=== PATIENT | female | born 1930 | race Caucasian/White ===

== ENCOUNTER → 2016-12-23 | Outpatient (CLI) | payer OTHER ==
[~2016-12-23] MED LIST: ALBU18002 NAE; ALBUAER INH; ALBUAER9 INH; CALCTAB7 PO; CLC100X PO; CLOP1TAB54 PO; CLTP PO; DILT180C PO; DVN80 PO; FLVHFA44 INH; MULT-190 PO; MULTCAP33 PO; MULTCHW PO; NXM/40 PO; OMEG-128 PO; OMEG10007 PO; PRVC10 PO; SIME1CAP28 PO; TEMA15CA4 PO; ZNTT/150 PO
--- NOTE | 2016-12-23 11:33 | DIAGNOSTIC IMAGING REPORT ---
CERVICAL SPINE 7 VIEWS HISTORY: Peripheral neuropathy NUMBNESS OF RIGHT HAND COMPARISON: None. FINDINGS: The cervical spine is visualized from C1 through the superior endplate of T1. There is no fracture. Slight grade 1. Reversal subluxation of C3 on C4. This appears to be based on degenerative changes of posterior elements. Significant narrowing of the C3-C4 intervertebral disc space with minimal narrowing of all additional levels. No evidence for compression deformity. Calcification left carotid vasculature. IMPRESSION: Moderate degenerative change primarily at C3-C4. No acute abnormality. Calcification left carotid vasculature. Electronically signed by: Lele Kearns M.D. 12/23/2016 11:31 AM Dictated Date/Time: 12/23/2016 11:26 AM
== END | disposition home or self-care (01) ==
LOC: C.RADBC 11:06
PROVIDERS: ATTEND Family Medicine
DX: R20.0 Anesthesia of skin (principal); M50.31 Other cervical disc degeneration, high cervical region

== ENCOUNTER → 2017-01-03 | Outpatient (CLI) | payer OTHER ==
--- NOTE | 2017-01-03 14:31 | DIAGNOSTIC IMAGING REPORT ---
RIGHT HAND MIN 3 VIEWS ROUTINE CLINICAL HISTORY: LUMP ON RIGHT HAND Right nodule. Pain. COMPARISON: None. DISCUSSION: Moderate generalized degenerative change. Mild osteopenia. No well-defined abnormal periosteal reaction. No acute bony abnormality. Several small benign-appearing bone cyst proximal phalanx fifth finger. Moderate degenerative change first metatarsophalangeal joint. There is no evidence for soft tissue swelling. note is made of what appears to be an old healed fracture base of first metacarpal IMPRESSION: Moderate degenerative change. Mild osteopenia. No acute bony abnormality. Electronically signed by: Lele Kearns M.D. 01/03/2017 2:30 PM Dictated Date/Time: 01/03/2017 2:29 PM
== END | disposition home or self-care (01) ==
LOC: C.RADBC 13:46
PROVIDERS: ATTEND Internal Medicine Geriatric Medicine
DX: M79.644 Pain in right finger(s) (principal); R22.31 Localized swelling, mass and lump, right upper limb

== ENCOUNTER 2017-03-04 16:51 | Emergency (ER) | payer OTHER ==
[~2017-03-04] VITALS: Ht 144.8 cm; Wt 58.9 kg
[~2017-03-04 16:51] MED LIST changes: -ALBU18002 NAE; -ALBUAER INH; -CALCTAB7 PO; -CLOP1TAB54 PO; -DILT180C PO; -DVN80 PO; -MULTCAP33 PO; -MULTCHW PO; -NXM/40 PO; -OMEG-128 PO; -PRVC10 PO; -SIME1CAP28 PO; -TEMA15CA4 PO
[2017-03-04 16:55] VITALS: TEMP 36.6; Ht 144.8 cm; Wt 58.9 kg
[2017-03-04] MEDS ORDERED: METOCLOPRAMIDE HCL INJ 5 MG/ML 2 ML VIAL IV STA (18:27)
[2017-03-04] MEDS ORDERED: SODIUM CHLORIDE 0.9% 500ML 500 ML IV STA (18:27)
--- NOTE | 2017-03-04 18:28 | EMERGENCY ROOM VISIT NOTE ---
History Report prepared by Miky: Sandie Kang Under the Supervision of: Dr. Nirmal Purcell M.D. First contact with patient: 18:18 Chief Complaint: CONSTIPATION Stated Complaint: CONSTIPATION, BACK PAIN History of Present Illness The patient is a 86 year old female who presents to the Emergency Room with complaints of constant constipation beginning 4 days prior to arrival. The patient states that she has taken stool softener medication for the past 3 days and has not had a bowel movement. She is passing gas. The patient has a history of bowel obstruction in 2011 that began with constipation. She is also experiencing lower back pain which was present when she had her bowel obstruction. She denies any other symptoms at this time. 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 Review of Systems See HPI for pertinent positives & negatives. A total of 10 systems reviewed and were otherwise negative. Past Medical & Surgical Medical Problems: (1) Acid reflux (2) Arm pain, left (3) Asthma (4) CAD (coronary artery disease) (5) Hypertension (6) Myocardial infarction Surgical Problems: (1) H/O: hysterectomy Family History Patient reports no known family medical history. Social History Smoking Status: Never Smoker Alcohol Use: none Marital Status: Housing Status: lives alone Occupation Status: retired Current/Historical Medications Scheduled Calcium Carbonate-Vitamin D W/ (Caltrate 600 Plus), 1 TAB PO DAILY Clopidogrel Bisulfate (Plavix), 75 MG PO Q2D Diltiazem Hcl Coated Beads (Diltiazem Hcl Er), 180 MG PO DAILY Esomeprazole Magnesium (Nexium), 40 MG PO DAILY Fluticasone Propionate (Flovent Hfa), 2 PUFFS INH DAILY Multiple Vitamins W/ Minerals (Centrum Silver), 1 TAB PO DAILY Ocuvite Preservision (Ocuvite Preservision), 1 TAB PO BID [place]-3 Fatty Acids (Fish Oil [place]-3 1000 mg), 1 CAP PO DAILY Pravastatin Sod (Pravastatin Sodium), 20 MG PO HS Temazepam (Restoril), 15-30 MG PO HS Valsartan (Diovan), 80 MG PO DAILY Scheduled PRN Albuterol Sulfate (Proventil Hfa), 1-2 PUFFS INH DIRECTED PRN for Shortness of Breath Docusate Sodium (Docusate Sodium), 100-200 MG PO DAILY PRN for Constipation Ranitidine (Zantac), 150 MG PO BID PRN for Indigestion Allergies Coded Allergies: Aspirin (Verified Allergy, Unknown, 03/04/17) Physical Exam Vital Signs Date Time Temp Pulse Resp B/P Pulse Ox O2 Delivery O2 Flow Rate FiO2 03/04/17 20:00 65 19 136/68 96 Room Air 03/04/17 18:50 66 03/04/17 18:33 65 18 126/66 96 Room Air 03/04/17 16:55 36.6 48 20 146/73 95 Room Air Physical Exam GENERAL: Patient is a healthy-appearing well-nourished HEAD: Normocephalic atraumatic EYES: Ocular movements intact pupils equal and react to light OROPHARYNX mucous membranes are moist no exudates present no erythema or edema present NECK: Supple no nuchal rigidity CHEST: Good equal expansion LUNGS: Clear and equal to auscultation CARDIAC: Normal S1 and S2 ABDOMEN: Soft nontender no guarding BACK: No CVA tenderness EXTREMITIES: No pain upon palpation normal muscle strength in all groups no clubbing cyanosis or edema NEURO: Patient is following commands is answering questions appropriately. Alert and oriented x3 Cranial Nerves 2-12 grossly intact Medical Decision & Procedures ER Provider Diagnostic Interpretation: CT results as stated below per my review and radiologist interpretation: CT SCAN OF THE ABDOMEN AND PELVIS WITH IV CONTRAST CLINICAL HISTORY: Generalized abdominal pain. COMPARISON STUDY: Abdominal CT dated 04/26/2016. TECHNIQUE: Following the IV administration of 116 cc of Optiray 320, CT scan of the abdomen and pelvis is performed from the lung bases to the proximal femora. Images are reviewed in the axial, sagittal, and coronal planes. IV contrast was administered without complication. Automated dose control exposure was utilized. CT DOSE: 342.87 mGy.cm FINDINGS: Lung bases: The heart is top normal in size and without pericardial effusion. The coronary arteries are calcified. Chronic interstitial changes are present the lung bases. No airspace consolidation or pleural effusion is seen. Liver: The contrast-enhanced liver is normal in size, contour, and attenuation. There is mild central intrahepatic biliary ductal dilatation. The hepatic veins and portal veins are patent. Gallbladder: Surgically absent noting clips in the gallbladder fossa. Spleen: Normal in size and attenuation. Pancreas: Moderately atrophic and grossly unremarkable. Adrenal glands: Unremarkable. Kidneys: The contrast enhanced kidneys demonstrate cortical atrophy and are without hydronephrosis. The kidneys enhance symmetrically. Abdominal vasculature: The abdominal aorta is normal in course and caliber noting advanced atherosclerotic calcification. Stomach and bowel: There is a moderate to large hiatal hernia. Approximately 1/3 of the stomach is located in the thoracic cavity. The duodenum is normal in configuration. No bowel obstruction is identified. There is mild sigmoid diverticulosis without CT evidence of acute diverticulitis. The appendix is not identified and reported surgically absent. Peritoneum: There is no intraperitoneal free air or abdominal ascites. There is a fat-containing umbilical hernia. Lymphadenopathy: None. Pelvic viscera: The bladder is normal as visualized. The uterus is surgically absent. No adnexal lesion is seen. Numerous phleboliths are identified in the pelvis. 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 Skeletal structures: The skeletal structures are osteopenic. There is moderate lumbosacral spondylosis and scoliosis. No lytic or blastic lesions are seen. A large bone island is present in the right femoral head. IMPRESSION: 1. There are no acute infectious or inflammatory findings in the abdomen or pelvis. 2. Moderate to large hiatal hernia. 3. Mild sigmoid diverticulosis without CT evidence of acute diverticulitis. 4. Additional changes as above. Electronically signed by: Manoj Caceres M.D. 03/04/2017 9:56 PM Dictated Date/Time: 03/04/2017 9:51 PM Laboratory Results 03/04/17 18:53 Red Blood Count 4.12, Mean Corpuscular Volume 91.7, Mean Corpuscular Hemoglobin 31.6, Mean Corpuscular Hemoglobin Concent 34.4, Mean Platelet Volume 11.2, Neutrophils (%) (Auto) 47.8, Lymphocytes (%) (Auto) 39.6, Monocytes (%) (Auto) 8.0, Eosinophils (%) (Auto) 3.9, Basophils (%) (Auto) 0.6, Neutrophils # (Auto) 3.23, Lymphocytes # (Auto) 2.67, Monocytes # (Auto) 0.54, Eosinophils # (Auto) 0.26, Basophils # (Auto) 0.04 03/04/17 18:53 Test 03/04/17 18:53 03/04/17 18:55 White Blood Count 6.75 K/uL (4.8-10.8) Red Blood Count 4.12 M/uL (4.2-5.4) Hemoglobin 13.0 g/dL (12.0-16.0) Hematocrit 37.8 % (37-47) Mean Corpuscular Volume 91.7 fL (80-100) Mean Corpuscular Hemoglobin 31.6 pg (25-34) Mean Corpuscular Hemoglobin Concent 34.4 g/dl (32-36) Platelet Count 159 K/uL (130-400) Mean Platelet Volume 11.2 fL (7.4-10.4) Neutrophils (%) (Auto) 47.8 % Lymphocytes (%) (Auto) 39.6 % Monocytes (%) (Auto) 8.0 % Eosinophils (%) (Auto) 3.9 % Basophils (%) (Auto) 0.6 % Neutrophils # (Auto) 3.23 K/uL (1.4-6.5) Lymphocytes # (Auto) 2.67 K/uL (1.2-3.4) Monocytes # (Auto) 0.54 K/uL (0.11-0.59) Eosinophils # (Auto) 0.26 K/uL (0-0.5) Basophils # (Auto) 0.04 K/uL (0-0.2) RDW Standard Deviation 43.7 fL (36.4-46.3) RDW Coefficient of Variation 12.9 % (11.5-14.5) Immature Granulocyte % (Auto) 0.1 % Immature Granulocyte # (Auto) 0.01 K/uL (0.00-0.02) Anion Gap 6.0 mmol/L (3-11) Est Creatinine Clear Calc Drug Dose 37.7 ml/min Estimated GFR () 78.6 Estimated GFR (Non- 67.8 BUN/Creatinine Ratio 18.5 (10-20) Calcium Level 9.3 mg/dl (8.5-10.1) Total Bilirubin 0.5 mg/dl (0.2-1) Direct Bilirubin mg/dl (0-0.2) Aspartate Amino Transf (AST/SGOT) U/L (15-37) Alanine Aminotransferase (ALT/SGPT) 23 U/L (12-78) Alkaline Phosphatase 98 U/L (45-117) Total Protein 7.7 gm/dl (6.4-8.2) Albumin 3.9 gm/dl (3.4-5.0) Lipase 193 U/L (73-393) Urine Color YELLOW Urine Appearance CLEAR (CLEAR) Urine pH 6.5 (4.5-7.5) Urine Specific [place] 1.005 (1.000-1.030) Urine Protein NEG (NEG) Urine Glucose (UA) NEG (NEG) Urine Ketones NEG (NEG) Urine Occult Blood NEG (NEG) Urine Nitrite NEG (NEG) Urine Bilirubin NEG (NEG) Urine Urobilinogen NEG (NEG) Urine Leukocyte Esterase TRACE (NEG) Urine WBC (Auto) 1-5 /hpf (0-5) Urine RBC (Auto) 0-4 /hpf (0-4) Urine Hyaline Casts (Auto) 1-5 /lpf (0-5) Urine Epithelial Cells (Auto) 10-20 /lpf (0-5) Urine Bacteria (Auto) NEG (NEG) Labs reviewed by ED physician. Medications Administered Medications (Trade) Dose Ordered Sig/Sana Route Start Time Stop Time Status Last Admin Dose Admin Sodium Chloride (Nss 500ml) 500 ml @ 999 mls/hr Q31M STAT IV 03/04/17 18:27 03/04/17 18:57 DC 03/04/17 18:42 999 MLS/HR Metoclopramide HCl (Reglan Inj) 10 mg NOW STAT IV 03/04/17 18:27 03/04/17 18:28 DC 03/04/17 18:42 10 MG ED Course 182: Past medical records reviewed. The patient was evaluated in room B9. A complete history and physical examination was performed. 1827: Reglan Inj 10 mg, Sodium Chloride 500 ml @ 999 mls/hr IV. 2218: Upon reexamination the patient is hemodynamically stable. I discussed results and treatment plan with the patient. She verbalizes agreement and understanding. The patient is ready for discharge. Medical Decision The patient is a 86 year old female who presents to the ED with complaints of constipation. Differential diagnosis: Etiologies such as functional constipation, impaction, obstruction, volvulus, metabolic abnormality, infection, neurologic, as well as others were entertained. This is an 86-year-old female who presents emergency department over concerns about constipation. Serial abdominal examinations were performed on the patient in the emergency department and at no time did she exhibit a surgical abdomen. In addition she is also nontender on examination. She has a normal CBC normal renal profile normal liver profile normal lipase. Based on these findings along with a normal CAT scan of the abdomen and pelvis I felt the patient was safe enough to be discharged home. She also has no evidence of constipation on the CAT scan. Based on these findings I felt that the patient could have clear liquid diet for the next 48 hours and to follow-up with her primary care physician. Both patient and family were in agreement with this treatment plan. Impression Primary Impression: Abdominal pressure Scribe Attestation The scribe's documentation has been prepared under my direction and personally reviewed by me in its entirety. I confirm that the note above accurately reflects all work, treatment, procedures, and medical decision making performed by me. Departure Information Dispostion Home / Self-Care Referrals Jamaal Heaton D.O.Int.Med. (PCP) Forms HOME CARE DOCUMENTATION FORM, IMPORTANT VISIT INFORMATION, School Instructions, Work Instructions Patient Instructions ED Abd Pain Unkn Cause Fem, ED Diet Clear Liquid, My [facility] Additional Instructions Clear liquid diet next 48 hours You have been examined and treated today on an emergency basis only. This is not a substitute for, or an effort to provide, complete comprehensive medical care. It is impossible to recognize and treat all injuries or illnesses in a single emergency department visit. It is therefore important that you follow up closely with Dr Heaton. Call as soon as possible for an appointment. Thank you for your time and consideration. I look forward to speaking with you again soon. Please don't hesitate to call us if you have any questions.
[2017-03-04 19:05] LABS: BASO % 0.6 %; BASO ABS # 0.04 K/uL (0-0.2); COMPLETE YES; EOS % 3.9 %; HEMATOCRIT 37.8 % (37-47); IG% 0.1 %; LYMPH % 39.6 %; LYMPH ABS # 2.67 K/uL (1.2-3.4); MEAN CELL VOLUME 91.7 fL (80-100); MEAN CORPUSCULAR HEMOGLOBIN 31.6 pg (25-34); MEAN CORPUSCULAR HGB CONC 34.4 g/dl (32-36); MEAN PLATELET VOLUME 11.2 fL (7.4-10.4); NEUT % 47.8 %; PLATELET COUNT 159 K/uL (130-400); RED BLOOD COUNT 4.12 M/uL (4.2-5.4); WHITE BLOOD COUNT 6.75 K/uL (4.8-10.8)
[2017-03-04 19:07] LABS: REVIEW REQ? NO; URINE APPEARANCE CLEAR (CLEAR); URINE BILIRUBIN NEG (NEG); URINE COLOR YELLOW; URINE NITRITE NEG (NEG); URINE PH 6.5 (4.5-7.5); URINE SPECIFIC GRAVITY 1.005 (1.000-1.030); UROBILINOGEN NEG (NEG)
[2017-03-04 19:08] LABS: MANUAL MICROSCOPIC REQUIRED? NO
[2017-03-04 19:30] LABS: ALKALINE PHOSPHATASE 98 U/L (45-117); ALT/SGPT 23 U/L (12-78); BLOOD UREA NITROGEN 15 mg/dl (7-18); BUN/CREATININE RATIO 18.5 (10-20); CALCIUM 9.3 mg/dl (8.5-10.1); CARBON DIOXIDE 31 mmol/L (21-32); CHLORIDE 106 mmol/L (98-107); CREATININE 0.79 mg/dl (0.60-1.20); GLUCOSE 88 mg/dl (70-99); SODIUM 143 mmol/L (136-145)
[2017-03-04] MEDS ORDERED: ALBUAER INH (19:38)
[2017-03-04] MEDS ORDERED: OMEG-128 PO (19:38)
[2017-03-04] MEDS ORDERED: OPTIRAY 320 IV PRN (21:45)
--- NOTE | 2017-03-04 21:58 | DIAGNOSTIC IMAGING REPORT ---
CT SCAN OF THE ABDOMEN AND PELVIS WITH IV CONTRAST CLINICAL HISTORY: Generalized abdominal pain. COMPARISON STUDY: Abdominal CT dated 04/26/2016. TECHNIQUE: Following the IV administration of 116 cc of Optiray 320, CT scan of the abdomen and pelvis is performed from the lung bases to the proximal femora. Images are reviewed in the axial, sagittal, and coronal planes. IV contrast was administered without complication. Automated dose control exposure was utilized. CT DOSE: 342.87 mGy.cm FINDINGS: Lung bases: The heart is top normal in size and without pericardial effusion. The coronary arteries are calcified. Chronic interstitial changes are present the lung bases. No airspace consolidation or pleural effusion is seen. Liver: The contrast-enhanced liver is normal in size, contour, and attenuation. There is mild central intrahepatic biliary ductal dilatation. The hepatic veins and portal veins are patent. Gallbladder: Surgically absent noting clips in the gallbladder fossa. Spleen: Normal in size and attenuation. Pancreas: Moderately atrophic and grossly unremarkable. Adrenal glands: Unremarkable. Kidneys: The contrast enhanced kidneys demonstrate cortical atrophy and are without hydronephrosis. The kidneys enhance symmetrically. Abdominal vasculature: The abdominal aorta is normal in course and caliber noting advanced atherosclerotic calcification. Stomach and bowel: There is a moderate to large hiatal hernia. Approximately 1/3 of the stomach is located in the thoracic cavity. The duodenum is normal in configuration. No bowel obstruction is identified. There is mild sigmoid diverticulosis without CT evidence of acute diverticulitis. The appendix is not identified and reported surgically absent. Peritoneum: There is no intraperitoneal free air or abdominal ascites. There is a fat-containing umbilical hernia. Lymphadenopathy: None. Pelvic viscera: The bladder is normal as visualized. The uterus is surgically absent. No adnexal lesion is seen. Numerous phleboliths are identified in the pelvis. 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 Skeletal structures: The skeletal structures are osteopenic. There is moderate lumbosacral spondylosis and scoliosis. No lytic or blastic lesions are seen. A large bone island is present in the right femoral head. IMPRESSION: 1. There are no acute infectious or inflammatory findings in the abdomen or pelvis. 2. Moderate to large hiatal hernia. 3. Mild sigmoid diverticulosis without CT evidence of acute diverticulitis. 4. Additional changes as above. Electronically signed by: Manoj Caceres M.D. 03/04/2017 9:56 PM Dictated Date/Time: 03/04/2017 9:51 PM
[2017-03-04 23:18] VITALS: BP 139/74; PULSE 65; O2SAT 93
[2017-08-29] MEDS ORDERED: CLOP1TAB54 PO (01:29)
[2017-08-29] MEDS ORDERED: DVN80 PO (01:30)
[2017-08-29] MEDS ORDERED: NXM/40 PO (01:49)
[2017-08-29] MEDS ORDERED: TEMA15CA4 PO (11:06)
[2017-08-29] MEDS ORDERED: SIME1CAP28 PO (11:35)
[2017-08-29] MEDS ORDERED: MULTCAP33 PO (11:35)
[2017-08-29] MEDS ORDERED: OMEG10007 PO (11:35)
[2017-08-29] MEDS ORDERED: ALBU18002 NAE (11:35)
== END 2017-03-04 23:18 | disposition home or self-care (01) ==
LOC: C.EDB 16:52
DX: R10.9 Unspecified abdominal pain (principal); K21.9 Gastro-esophageal reflux disease without esophagitis; I25.10 Atherosclerotic heart disease of native coronary artery without angina pectoris; I10 Essential (primary) hypertension; I25.2 Old myocardial infarction; J45.909 Unspecified asthma, uncomplicated; Z79.02 Long term (current) use of antithrombotics/antiplatelets; Z79.899 Other long term (current) drug therapy

== ENCOUNTER → 2017-03-08 | Outpatient (CLI) | payer OTHER ==
[~2017-03-08] MED LIST changes: +ALBU18002 NAE; +ALBUAER INH; -ALBUAER9 INH; +CALCTAB7 PO; +CLOP1TAB54 PO; -CLTP PO; +DILT180C PO; +DVN80 PO; +LACT10SO17 PO; +MULTCAP33 PO; +MULTCHW PO; +NXM/40 PO; +OMEG-128 PO; +PRVC10 PO; +SIME1CAP28 PO; +TEMA15CA4 PO
--- NOTE | 2017-03-08 16:29 | MAMMOGRAPHY REPORT ---
BILATERAL DIGITAL SCREENING MAMMOGRAM WITH CAD: 03/08/2017 CLINICAL HISTORY: Routine screening. Patient has no complaints. TECHNIQUE: Bilateral CC and MLO views were obtained. Current study was also evaluated with a Comput er Aided Detection (CAD) system. COMPARISON: Comparison is made to exams dated: 03/03/2016 mammogram, 07/28/2011 mammogram, 06/23/2010 ma mmogram, 09/17/2009 mammogram - [facility], 03/17/2009, and 09/17/2008. BREAST COMPOSITION: There are scattered areas of fibroglandular density in both breasts. FINDINGS: There are scattered groupings of benign-appearing microcalcifications bilaterally. No ne w suspicious mass, architectural distortion or cluster of microcalcifications is seen. IMPRESSION: ACR BI-RADS CATEGORY 1: NEGATIVE There is no mammographic evidence of malignancy. A 1 year screening mammogram is recommended. The p atient will receive written notification of the results. Approximately 10% of breast cancers are not detected with mammography. A negative mammographic repor t should not delay biopsy if a clinically suggestive mass is present. Ernestina Bergman M.D. ay/:03/08/2017 15:09:59 Water Filterer: Emmy BLACK)(Steven), [facility] letter sent: Normal 1/2 BI-RADS Code: ACR BI-RADS Category 1: Negative
== END | disposition home or self-care (01) ==
LOC: C.MAMM 10:55
PROVIDERS: ATTEND Obstetrics & Gynecology
DX: Z12.31 Encounter for screening mammogram for malignant neoplasm of breast (principal)

== ENCOUNTER → 2017-03-21 | Outpatient (CLI) | payer OTHER | END | disposition home or self-care (01) | LOC: C.LABBC 15:36 | PROVIDERS: ATTEND Physician Assistant | DX: R14.0 Abdominal distension (gaseous) (principal); Z86.19 Personal history of other infectious and parasitic diseases ==

== ENCOUNTER → 2017-04-13 | Day surgery (SDC) | payer OTHER ==
[2017-04-07 11:39] VITALS: BMI 27.0
[~2017-04-13] VITALS: Ht 142.2 cm; Wt 57.3 kg
[~2017-04-13] MED LIST changes: -ALBUAER INH; +LIDOCAINE HCL 2% 2 ML VIAL (20MG/ML) ONE; -MULT-190 PO; -OMEG-128 PO; +PROPOFOL IV EMULSION 10 MG/ML 20 ML VIAL IV ONE; +SODIUM CHLORIDE 0.9% 500ML 500 ML IV ONE; -ZNTT/150 PO
[2017-04-13 13:47] VITALS: Ht 142.2 cm; Wt 57.3 kg
--- NOTE | 2017-04-13 14:31 | Endo History and Physical ---
History & Physical Date of Service: April 13, 2017. Chief Complaint: PAIN BLOATING LUQ PAIN HERNIA Referring Physician: DR. BOYCE History of Present Illness 86 yo CF who presents for EGD secondary to LUQ abdominal pain and bloating. Past Surgical History Hx Cardiac Surgery: Yes (HEART CATH, STENT X1) Hx Internal Defibrillator: No Hx Pacemaker: No Hx Abdominal Surgery: Yes (PARTIAL HYSTER, BILATERAL OOPHORECTOMY, ELIE) Hx of Implantable Prosthesis: No Hx Post-Op Nausea and Vomiting: No Hx Cancer Surgery: No Hx Thoracic Surgery: No Hx Orthopedic: No Hx Urinary Tract Surgery: No Family History Esophogeal [place] Social History Smoking Status: Never Smoker Hx Substance Use: No Hx Alcohol Use: No Allergies Coded Allergies: Aspirin (Verified Allergy, Severe, DIFFICULTY BREATHING, 04/13/17) Uncoded Allergies: MOLD (Allergy, Mild, UNKNOWN, 04/13/17) Current Medications Reported Home Medications Medications Dose Route/Sig Max Daily Dose Days Date Category Simethicone 125 Mg Cap 1 Tab PO UD 04/07/17 Reported Proair Respiclick (Albuterol Sulfate) 108 Mcg/Act Aer 2 [place] LEX Q4H PRN 04/07/17 Reported Preservision Areds (Multiple Vitamins W/ Minerals) 1 Cap Cap 1 Cap PO BID 04/07/17 Reported [place]-3 (Fish Oil) 1 Ea Cap 1 Cap PO QAM 04/07/17 Reported Docusate Sodium 100 Mg Cap 100-200 Mg PO DAILY PRN 03/04/17 Reported Caltrate 600 Plus (Calcium Carbonate-Vitamin D W/) 1 Tab Tab 1 Tab PO QAM 03/04/17 Reported Flovent Hfa (Fluticasone Propionate) 120 Puffs/5280 Mcg Aero 2 Puffs INH QAM 03/04/17 Reported Centrum Silver (Multiple Vitamins W/ Minerals) 1 Chw Chw 1 Tab PO QAM 10/09/16 Reported Pravastatin Sodium (Pravastatin Sod) 10 Mg Tab 20 Mg PO HS 10/09/16 Reported Diltiazem Hcl Er (Diltiazem Hcl Coated Beads) 180 Mg Cap 180 Mg PO QAM 10/09/16 Reported Diovan (Valsartan) 80 Mg Tab 80 Mg PO QAM 07/17/12 Reported Plavix (Clopidogrel Bisulfate) 75 Mg Tab 75 Mg PO Q2D 07/17/12 Reported Nexium (Esomeprazole Magnesium) 40 Mg Capcr 40 Mg PO QAM 03/26/10 Reported Restoril (Temazepam) 15 Mg Cap 15 Mg PO HS 02/06/07 Reported Vital Signs Weight (Kilograms): 57.27 Height (Feet): 4 Height (Inches): 8 Date Time Temp Pulse Resp B/P Pulse Ox O2 Delivery O2 Flow Rate FiO2 04/13/17 14:05 36.8 82 18 137/56 97 Room Air Physical Exam General Appearance: WD/WN, no apparent distress Respiratory/Chest: Auscultation: breath sounds normal Cardiovascular: Heart Auscultation: RRR Abdomen: Bowel Sounds: normal Inspection & Palpation: soft, non-distended, no tenderness, guarding & rebound Assessment and Plan Assessment: 86 yo CF who presents for EGD secondary to LUQ abdominal pain and bloating. Plan: Proceed with EGD.
--- NOTE | 2017-04-13 15:22 | Discharge Instructions ---
Endoscopy Patient Instructions Date / Procedure(s) Performed April 13, 2017. EGD Allergy Information Coded Allergies: Aspirin (Verified Allergy, Severe, DIFFICULTY BREATHING, 04/13/17) Uncoded Allergies: MOLD (Allergy, Mild, UNKNOWN, 04/13/17) Discharge Date / Findings April 13, 2017. Gastritis s/p biopsies Hiatal hernia Schatzki's ring dilated to 20mm Medication Instructions Stopped Medication(s): ALL EXCEPT DIOVAN CARDIZEM AND NEXIUM STOPPED PLAVIX 04-10-17 OK to resume all medications today as prescribed Reported Home Medications Medications Dose Route/Sig Max Daily Dose Days Date Category Simethicone 125 Mg Cap 1 Tab PO UD 04/07/17 Reported Proair Respiclick (Albuterol Sulfate) 108 Mcg/Act Aer 2 Pimento LEX Q4H PRN 04/07/17 Reported Preservision Areds (Multiple Vitamins W/ Minerals) 1 Cap Cap 1 Cap PO BID 04/07/17 Reported Morrill-3 (Fish Oil) 1 Ea Cap 1 Cap PO QAM 04/07/17 Reported Docusate Sodium 100 Mg Cap 100-200 Mg PO DAILY PRN 03/04/17 Reported Caltrate 600 Plus (Calcium Carbonate-Vitamin D W/) 1 Tab Tab 1 Tab PO QAM 03/04/17 Reported Flovent Hfa (Fluticasone Propionate) 120 Puffs/5280 Mcg Aero 2 Puffs INH QAM 03/04/17 Reported Centrum Silver (Multiple Vitamins W/ Minerals) 1 Chw Chw 1 Tab PO QAM 10/09/16 Reported Pravastatin Sodium (Pravastatin Sod) 10 Mg Tab 20 Mg PO HS 10/09/16 Reported Diltiazem Hcl Er (Diltiazem Hcl Coated Beads) 180 Mg Cap 180 Mg PO QAM 10/09/16 Reported Diovan (Valsartan) 80 Mg Tab 80 Mg PO QAM 07/17/12 Reported Plavix (Clopidogrel Bisulfate) 75 Mg Tab 75 Mg PO Q2D 07/17/12 Reported Nexium (Esomeprazole Magnesium) 40 Mg Capcr 40 Mg PO QAM 03/26/10 Reported Restoril (Temazepam) 15 Mg Cap 15 Mg PO HS 02/06/07 Reported Provider Instructions Activity Restrictions - No exercising or heavy lifting for 24 hours. - Do not drink alcohol the day of the procedure. - Do not drive a car or operate machinery until the day after the procedure. - Do not make any important decisions or sign important papers in 24 hours after the procedure. Following Day: - Return to full activity which may include returning to work/school. Diet Start your diet with liquids and light foods (jello, soup, juice, toast). Then eat your usual diet if not nauseated. Treatment For Common After Affects For mild abdominal pain, bloating, or excessive gas: - Rest - Eat lightly - Lie on right side Follow-Up Information Follow-up with DR. BOYCE as scheduled Anesthesia Information What You Should Know You have had a procedure that required some medicine to reduce anxiety and discomfort. This treatment is called moderate sedation. After receiving the treatment, you may be sleepy, but you will be able to breathe on your own. The effects of the treatment may last for several hours. Follow these instructions along with Activity/Diet recommendations noted above: * Do NOT do anything where dizziness or clumsiness would be dangerous. * Rest quietly at home today, then you can be up and about tomorrow. * Have a responsible person stay with you the rest of today. * You may have had an I.V. today. If so, you may take the dressing off later today. Recommendations Call your doctor if: * Trouble breathing * Continuous vomiting for more than 24 hours * Temperature above 101 degrees * Severe abdominal pain or bloating * Pain not relieved by pain medicine ordered * There is increased drainage or redness from any incision * A large amount of rectal bleeding greater than 2-3 tablespoons. (If you had a polyp/s removed or have hemorrhoids, a small amount of blood - from the rectum is to be expected.) * You have any unanswered questions or concerns. IN THE EVENT OF A SERIOUS EMERGENCY, GO TO THE NEAREST EMERGENCY ROOM Your discharge instructions were prepared by provider Butch Moon. Patient Instructions Signature Page Karla Britt Patient (or Guardian) Signature/Date: I have read and understand the instructions given to me by my caregivers. Caregiver/RN/Doctor Signature/Date: The above-named patient and/or guardian has received patient instructions on this date. + Original Patient Signature Page (only) stays with chart. Please make copy for patient.
--- NOTE | 2017-04-13 15:33 | GI REPORT ---
Procedure Date: 04/13/2017 2:37 PM THIS REPORT HAS BEEN AMENDED Addendum Number: 1 Addendum Date: 04/13/2017 4:47:37 PM Dilation of Schatzki's Ring was performed with TTS balloon dilation from 15 to 20 mm sequentially. The site was examined post dilation, and she had minimal improvement at the dilation site. Procedure: Upper GI endoscopy Indications: Abdominal pain in the left upper quadrant, Abdominal bloating Medicines: Monitored Anesthesia Care Complications: No immediate complications. Estimated Blood Loss: Estimated blood loss: none. Procedure: Pre-Anesthesia Assessment: - Prior to the procedure, a History and Physical was performed, and patient medications and allergies were reviewed. The patient's tolerance of previous anesthesia was also reviewed. The risks and benefits of the procedure and the sedation options and risks were discussed with the patient. All questions were answered, and informed consent was obtained. Prior Anticoagulants: The patient has taken Plavix (clopidogrel), last dose was 5 days prior to procedure. ASA Grade Assessment: III - A patient with severe systemic disease. After reviewing the risks and benefits, the patient was deemed in satisfactory condition to undergo the procedure. After obtaining informed consent, the endoscope was passed under direct vision. Throughout the procedure, the patient's blood pressure, pulse, and oxygen saturations were monitored continuously. The scope was introduced through the mouth, and advanced to the second part of duodenum. The upper GI endoscopy was accomplished without difficulty. The patient tolerated the procedure well. Findings: A mild Schatzki ring (acquired) was found at the gastroesophageal junction. The dilation site was examined and showed mild improvement in luminal narrowing. A small hiatus hernia was present. Localized mild inflammation characterized by erythema was found in the gastric antrum. Biopsies were taken with a cold forceps for histology. The examined duodenum was normal. Impression: - Mild Schatzki ring. - Small hiatus hernia. - Gastritis. Biopsied. - Normal examined duodenum. Recommendation: - Resume previous diet. - Continue present medications. - Await pathology results. - Return to primary care physician as previously scheduled. Butch ThiagoRandy Red 04/13/2017 3:32:58 PM This report has been signed electronically. Note Initiated On: 04/13/2017 2:37 PM I attest to the content of the Intraoperative Record and orders documented therein, exceptions below Butch Knapp Red, 04/13/2017 4:48:34 PM This report has been signed electronically.
[2017-04-13 15:55] VITALS: BP 124/49; PULSE 69; O2SAT 95
--- NOTE | 2017-04-13 16:01 | Anesthesiology Progress Note ---
Anesthesia Post Op Note Date & Time April 13, 2017 at 16:01 Vital Signs Pain Intensity: 3 Vital Signs Past 12 Hours Date Time Temp Pulse Resp B/P Pulse Ox O2 Delivery O2 Flow Rate FiO2 04/13/17 15:55 69 18 124/49 95 Room Air 04/13/17 15:40 71 18 121/54 97 Room Air 04/13/17 15:26 36.6 75 18 128/46 95 Room Air 04/13/17 14:05 36.8 82 18 137/56 97 Room Air Notes Mental Status: alert / awake / arousable, participated in evaluation Pt Amnestic to Procedure: Yes Nausea / Vomiting: adequately controlled Pain: adequately controlled Airway Patency, RR, SpO2: stable & adequate BP & HR: stable & adequate Hydration State: stable & adequate Anesthetic Complications: no major complications apparent
== END | disposition home or self-care (01) ==
LOC: C.GI 13:29
PROVIDERS: ATTEND Internal Medicine
DX: R10.12 Left upper quadrant pain (principal); R14.0 Abdominal distension (gaseous); K22.2 Esophageal obstruction; K44.9 Diaphragmatic hernia without obstruction or gangrene; K29.70 Gastritis, unspecified, without bleeding; J45.909 Unspecified asthma, uncomplicated; I25.2 Old myocardial infarction; I10 Essential (primary) hypertension; Z79.02 Long term (current) use of antithrombotics/antiplatelets; Z79.899 Other long term (current) drug therapy; Z90.722 Acquired absence of ovaries, bilateral; Z90.710 Acquired absence of both cervix and uterus; Z90.49 Acquired absence of other specified parts of digestive tract; Z80.0 Family history of malignant neoplasm of digestive organs; Z68.27 Body mass index [BMI] 27.0-27.9, adult

== ENCOUNTER → 2017-04-20 | Outpatient (CLI) | payer OTHER ==
[~2017-04-20] MED LIST changes: -LIDOCAINE HCL 2% 2 ML VIAL (20MG/ML) ONE; -PROPOFOL IV EMULSION 10 MG/ML 20 ML VIAL IV ONE; -SODIUM CHLORIDE 0.9% 500ML 500 ML IV ONE
--- NOTE | 2017-04-20 13:44 | DIAGNOSTIC IMAGING REPORT ---
KUB CLINICAL HISTORY: Abdominal bloating. Left upper quadrant abdominal pain. COMPARISON STUDY: CT of the abdomen and pelvis March 04, 2017. FINDINGS: There are cholecystectomy clips. Pelvic calcifications reflect phleboliths. The bowel gas pattern is normal. There is a [id number] amount of stool within the colon and rectum. A suspected bone island within the right femoral neck is noted. IMPRESSION: 1. No evidence for a bowel obstruction. 2. Mild to moderate amount of stool within the colon and rectum. Electronically signed by: Donnie Gurrola M.D. 04/20/2017 1:43 PM Dictated Date/Time: 04/20/2017 1:42 PM
== END | disposition home or self-care (01) ==
LOC: C.RAD1850 13:30
PROVIDERS: ATTEND Registered Nurse
DX: R14.0 Abdominal distension (gaseous) (principal); R10.12 Left upper quadrant pain

== ENCOUNTER → 2017-06-27 | Outpatient (CLI) | payer OTHER ==
--- NOTE | 2017-06-27 13:25 | DIAGNOSTIC IMAGING REPORT ---
KUB CLINICAL HISTORY: Abdominal bloating. Left upper quadrant pain. COMPARISON STUDY: CT of the abdomen and pelvis March 04, 2017 and KUB April 20, 2017. FINDINGS: Note is made of cholecystectomy clips and phleboliths within the pelvis. The bowel gas pattern is normal. There is mild levoscoliosis of the lumbar spine. Pelvic floor relaxation may be present but is suboptimally assessed by radiography. There is a moderate amount of stool within the colon and rectum. IMPRESSION: 1. No evidence of bowel obstruction. 2. Moderate amount of stool within the colon and rectum. Electronically signed by: Donnie Gurrola M.D. 06/27/2017 1:23 PM Dictated Date/Time: 06/27/2017 1:22 PM
--- NOTE | 2017-06-27 13:42 | DIAGNOSTIC IMAGING REPORT ---
CHEST 2 VIEWS ROUTINE CLINICAL HISTORY: Persistent dry cough COMPARISON STUDY: 10/09/2016 FINDINGS: The cardiac and mediastinal contours are normal. There is no evidence of focal pulmonary consolidation. There is no evidence of failure. There is stable blunting of the left lateral costophrenic angle. IMPRESSION: No active disease in the chest. Electronically signed by: Loco Rose M.D. 06/27/2017 1:41 PM Dictated Date/Time: 06/27/2017 1:40 PM
== END | disposition home or self-care (01) ==
LOC: C.RADBC 12:55
PROVIDERS: ATTEND Physician Assistant
DX: R05 Cough (principal); R14.0 Abdominal distension (gaseous); R10.12 Left upper quadrant pain

== ENCOUNTER 2017-08-29 11:49 | Emergency (ER) | payer OTHER ==
[~2017-08-29] VITALS: Ht 147.3 cm; Wt 56.9 kg
[~2017-08-29 11:49] MED LIST changes: -CALCTAB7 PO; -CLC100X PO; -DILT180C PO; -FLVHFA44 INH; -LACT10SO17 PO; -MULTCHW PO; -PRVC10 PO
[2017-08-29 12:02] VITALS: TEMP 36.9; Ht 147.3 cm; Wt 56.9 kg
--- NOTE | 2017-08-29 12:38 | EMERGENCY ROOM VISIT NOTE ---
History First contact with patient: 12:15 Chief Complaint: GI ASSESSMENT Stated Complaint: BOWEL PROBLEMS Nursing Triage Summary: pt reports she has not had bm for 4 days has tried laxatives no results has hx of bowel obstruction in past History of Present Illness The patient is a 86 year old female who presents to the Emergency Room with complaints of "bowel problems". The patient states that she has a history of small bowel obstruction, most recently 2011. She states that since this past Tuesday or Tuesday she has not had a bowel movement. This past Tuesday she had to dococet no bowel movement therefore on Tuesday took another 2. She then states that Tuesday and Tuesday she took polyethylene glycol 3350. No bowel movement. She states that yesterday she had a small liquid-like bowel movement, and flatulence but no solid bowel movement. She notes she's been consuming T and Jell-O and questions whether or not she has been eating enough food to cause a bowel movement. She states that she called her family doctor today and informed him upon her symptoms and they became concerned referring her here for her history of bowel obstruction. She notes that she feels slightly bloated, and has lower abdominal cramping rated as a 5/10. She denies any fevers or chills. Review of Systems A complete 10-point Review of Systems was discussed with the patient, with pertinent positives and negatives listed in the History of Present Illness. All remaining Review of Systems questions can be considered negative unless otherwise specified. Past Medical/Surgical History Medical Problems: (1) Acid reflux (2) Arm pain, left (3) Asthma (4) CAD (coronary artery disease) (5) Hypertension (6) Myocardial infarction Surgical Problems: (1) H/O: hysterectomy Family History Patient reports no known family medical history. Social History Smoking Status: Never Smoker Alcohol Use: none Marital Status: Housing Status: lives alone Occupation Status: retired Current/Historical Medications Scheduled Calcium Carbonate-Vitamin D W/ (Caltrate 600 Plus), 1 TAB PO QAM Clopidogrel Bisulfate (Plavix), 75 MG PO Q2D Diltiazem Hcl Coated Beads (Diltiazem Hcl Er), 180 MG PO QAM Esomeprazole Magnesium (Nexium), 40 MG PO QAM Fish Oil (Harrah-3), 1 CAP PO QAM Fluticasone Propionate (Flovent Hfa), 2 PUFFS INH QAM Lactulose (Chronulac), 15 ML PO DAILY Multiple Vitamins W/ Minerals (Centrum Silver), 1 TAB PO QAM Multiple Vitamins W/ Minerals (Preservision Areds), 1 CAP PO BID Pravastatin Sod (Pravastatin Sodium), 20 MG PO HS Simethicone (Simethicone), 1 TAB PO UD Temazepam (Restoril), 15 MG PO HS Valsartan (Diovan), 80 MG PO QAM Scheduled PRN Albuterol Sulfate (Proair Respiclick), 2 SPRAY LEX Q4H PRN for SOB/Wheezing Docusate Sodium (Docusate Sodium), 100-200 MG PO DAILY PRN for Constipation Physical Exam Vital Signs Date Time Temp Pulse Resp B/P (MAP) Pulse Ox O2 Delivery O2 Flow Rate FiO2 08/29/17 16:55 74 18 162/94 97 Room Air 08/29/17 15:00 60 16 144/65 97 Room Air 08/29/17 13:11 75 18 141/53 98 Room Air 08/29/17 12:02 36.9 80 18 166/71 99 Room Air Physical Exam VITAL SIGNS - Vital signs and nursing notes were reviewed. Stable. GENERAL -86-year-old female appearing her stated age who is in no acute distress. Communicates well with provider and answers questions appropriately. SKIN - Without rashes. HEAD - NC/AT. EYES - Sclera anicteric. EARS - No deformities of external structures noted on gross examination bilaterally. NOSE - Midline and without cyanosis. No epistaxis or purulent drainage noted. MOUTH/OROPHARYNX - Without perioral cyanosis. LUNGS - Chest wall symmetric without accessory muscle use, intercostals retractions, or central cyanosis. Normal vesicular breath sounds CTA B/L. No wheezes, rales, or rhonchi appreciated. CARDIAC - RRR with S1/S2. No murmur, rubs, or gallops appreciated. ABDOMEN - Abdominal contour normal without pulsations or visible masses. BS hyperactive all four quadrants. No tenderness, palpable masses, hepatosplenomegaly, or ascites noted. EXTREMITIES - No clubbing or peripheral cyanosis. No pretibial edema present. +5 /5 strength noted in UE/LE bilaterally. Medical Decision & Procedures ER Provider Diagnostic Interpretation: ABD/PELVIS IV AND ORAL CONT CLINICAL HISTORY: 86 years-old Female presenting with No bowel movement in 6 days, bloating, hx obstruction. TECHNIQUE: Multidetector CT of the abdomen and pelvis was performed after the administration of oral and intravenous contrast. IV contrast: 93 mL of Optiray 320. A dose lowering technique was used consistent with the principles of ALARA (as low as reasonably achievable). COMPARISON: 03/04/2017. CT DOSE (mGy.cm): The estimated cumulative dose is 323.78 mGy.cm. FINDINGS: Lock Expert topogram: Unremarkable. Lung bases: Minimal dependent changes likely atelectasis. Solid 4 mm fissural nodule in the right middle lobe. Left atrial enlargement. Aortic valve and coronary artery calcification. No pericardial or pleural effusion. Liver: Normal morphology. No liver lesion. Patent hepatic vasculature. Biliary: Prominence of intrahepatic and extrahepatic bile ducts likely a reservoir effect in the post cholecystectomy state. Gallbladder surgically absent. Pancreas: Normal. Spleen: Normal. Adrenal glands: Normal. Kidneys and ureters: Normal. No hydronephrosis. Bladder: Normal. Pelvic organs: Uterus surgically absent. Bowel: Mild stool burden in the left colon and sigmoid. No bowel obstruction. Moderate sliding hiatal hernia. Peritoneal cavity: No free fluid or intraperitoneal gas. Lymph nodes: No enlarged lymph nodes in the abdomen or pelvis. Vasculature: Atherosclerosis of the normal caliber abdominal aorta. IVC patent. Abdominal wall: Fat containing midline ventral hernia. Musculoskeletal: Degenerative changes of the spine. IMPRESSION: 1. Mild stool burden in the left colon. No bowel obstruction. No acute intra-abdominal pathology. 2. Moderate hiatal hernia. 3. Solid 4 mm fissural right middle lobe nodule. Follow-up per Deangelo Society 2017 recommendations below. Please refer to below summary of Fleischner Society 2017 recommendations for follow-up of incidental CT nodules (H Denver et al. Guidelines for management of incidental pulmonary nodules detected on CT images: From the Fleischner Society 2017. Radiology 2017; 284: 228-243.) SOLID NODULES Single nodule; size < 6 mm * Low risk patients: No routine follow-up * High risk patients: Optional CT at 12 months Single nodule; size 6-8 mm * Low risk patients: CT at 6-12 months, then consider CT at 18-24 months * High risk patients: CT at 6-12 months, then at 18-24 months Single nodule; size > 8 mm * Either low or high risk patients: Considered CT at 3 months, PET/CT, or tissue sampling Multiple nodules; size < 6 mm * Low risk patients: No routine follow up * High risk patients: Optional CT at 12 months Multiple nodules; size 6-8 mm * Low risk patients: CT at 3-6 months, then consider CT at 18-24 months * High risk patients: CT at 3-6 months, then at 18-24 months Multiple nodules; size > 8 mm * Low risk patients: CT at 3-6 months, then consider at 18-24 months * High risk patients: CT at 3-6 months, then at 18-24 months Note: These guidelines apply to incidental nodules. These guidelines do not apply to patients younger than 35 years, immunocompromised patients, or patients with cancer. * Low risk patients: Minimal or absent history of smoking and/or other known risk factors * High risk patients: History of smoking, exposure to other carcinogens, emphysema, fibrosis, upper lobe location, family history of lung cancer, etc. * If a nodule up to 8 mm is partly solid or is ground glass, further follow-up is required after 24 months to exclude possible slow growing adenocarcinoma. SUBSOLID NODULES Single ground-glass nodule * Nodule size < 6 mm: No routine follow-up * Nodule size > or = 6 mm: CT at 6-12 months to confirm persistence, then CT every 2 years until 5 years Single part-solid nodule * Nodule size < 6 mm: No routine follow-up * Nodules size > or = 6 mm: CT at 3-6 months to confirm persistence. If unchanged and solid component remains < 6 mm, annual CT should be performed for 5 years Multiple nodules * Nodule size < 6 mm: CT at 3-6 months. If stable, consider CT at 2 and 4 years. * Nodules size > or = 6 mm: CT at 3-6 months. Subsequent management based on the most suspicious nodule(s) Electronically signed by: Max Merino M.D. 08/29/2017 4:33 PM Dictated Date/Time: 08/29/2017 4:28 PM PA CHEST RADIOGRAPH AND UPRIGHT AND SUPINE AP RADIOGRAPHS OF THE ABDOMEN CLINICAL HISTORY: No bowel movement in 6 days, bloating, history of obstruction. COMPARISON STUDY: Chest radiograph June 27, 2017 CT of the abdomen and pelvis February 22, 2017. FINDINGS: Lung volumes are normal. No pneumothorax or pleural effusion is present. There is no evidence of pulmonary edema. Blunting of the left costophrenic angle is chronic. Cardiomediastinal silhouette is stable. No consolidation to suggest pneumonia. There is no free air. Cholecystectomy clips are present. Oral contrast is noted within portions of the small bowel. There is a moderate amount of stool within colon and rectum. IMPRESSION: 1. No free air or evidence of bowel obstruction. 2. No acute cardiopulmonary findings. 3. Moderate amount of stool within the colon and rectum. Electronically signed by: Donnie Gurrola M.D. 08/29/2017 1:43 PM Dictated Date/Time: 08/29/2017 1:41 PM Laboratory Results 08/29/17 12:35 Red Blood Count 4.31, Mean Corpuscular Volume 92.1, Mean Corpuscular Hemoglobin 30.9, Mean Corpuscular Hemoglobin Concent 33.5, Mean Platelet Volume 10.7, Neutrophils (%) (Auto) 63.5, Lymphocytes (%) (Auto) 26.3, Monocytes (%) (Auto) 7.0, Eosinophils (%) (Auto) 2.2, Basophils (%) (Auto) 0.9, Neutrophils # (Auto) 4.34, Lymphocytes # (Auto) 1.80, Monocytes # (Auto) 0.48, Eosinophils # (Auto) 0.15, Basophils # (Auto) 0.06 08/29/17 12:35 Test 08/29/17 12:35 08/29/17 13:05 White Blood Count 6.84 K/uL (4.8-10.8) Red Blood Count 4.31 M/uL (4.2-5.4) Hemoglobin 13.3 g/dL (12.0-16.0) Hematocrit 39.7 % (37-47) Mean Corpuscular Volume 92.1 fL (80-100) Mean Corpuscular Hemoglobin 30.9 pg (25-34) Mean Corpuscular Hemoglobin Concent 33.5 g/dl (32-36) Platelet Count 196 K/uL (130-400) Mean Platelet Volume 10.7 fL (7.4-10.4) Neutrophils (%) (Auto) 63.5 % Lymphocytes (%) (Auto) 26.3 % Monocytes (%) (Auto) 7.0 % Eosinophils (%) (Auto) 2.2 % Basophils (%) (Auto) 0.9 % Neutrophils # (Auto) 4.34 K/uL (1.4-6.5) Lymphocytes # (Auto) 1.80 K/uL (1.2-3.4) Monocytes # (Auto) 0.48 K/uL (0.11-0.59) Eosinophils # (Auto) 0.15 K/uL (0-0.5) Basophils # (Auto) 0.06 K/uL (0-0.2) RDW Standard Deviation 45.3 fL (36.4-46.3) RDW Coefficient of Variation 13.4 % (11.5-14.5) Immature Granulocyte % (Auto) 0.1 % Immature Granulocyte # (Auto) 0.01 K/uL (0.00-0.02) Anion Gap 7.0 mmol/L (3-11) Est Creatinine Clear Calc Drug Dose 38.2 ml/min Estimated GFR () 78.6 Estimated GFR (Non- 67.8 BUN/Creatinine Ratio 20.4 (10-20) Calcium Level 10.0 mg/dl (8.5-10.1) Magnesium Level 2.2 mg/dl (1.8-2.4) Total Bilirubin 0.4 mg/dl (0.2-1) Aspartate Amino Transf (AST/SGOT) 18 U/L (15-37) Alanine Aminotransferase (ALT/SGPT) 21 U/L (12-78) Alkaline Phosphatase 99 U/L (45-117) Total Protein 8.4 gm/dl (6.4-8.2) Albumin 4.2 gm/dl (3.4-5.0) Globulin 4.1 gm/dl (2.5-4.0) Albumin/Globulin Ratio 1.0 (0.9-2) Urine Color YELLOW Urine Appearance CLEAR (CLEAR) Urine pH 6.0 (4.5-7.5) Urine Specific [place] 1.014 (1.000-1.030) Urine Protein NEG (NEG) Urine Glucose (UA) NEG (NEG) Urine Ketones NEG (NEG) Urine Occult Blood NEG (NEG) Urine Nitrite NEG (NEG) Urine Bilirubin NEG (NEG) Urine Urobilinogen NEG (NEG) Urine Leukocyte Esterase MODERATE (NEG) Urine WBC (Auto) 5-10 /hpf (0-5) Urine RBC (Auto) 0-4 /hpf (0-4) Urine Hyaline Casts (Auto) 1-5 /lpf (0-5) Urine Epithelial Cells (Auto) 20-30 /lpf (0-5) Urine Bacteria (Auto) NEG (NEG) Medical Decision Patient was seen and evaluated as above. She process twisted today with lack of bowel movement for the past 4-6 days. She is been trying laxatives without relief. She does note that however she is only been consuming Tea and Jell-O as well as broth. I suspect that this may be the cause of her no solid bowel movement she has not had any solid foods over the past few days. Chest with abdomen radiograph was obtained and reveals mild stool burden, otherwise negative. Decision was made to obtain a CT scan of the abdomen and pelvis. Results as above. No evidence of overt fecal impaction, or other emergent process. She was educated upon this finding. Her blood work does not reveal any emergent process. No leukocytosis, anemia, evidence of kidney or liver failure. Urine reveals some leukocytes, but she has no urinary symptoms. I suspect contaminated sample with epithelial cells. She was also seen by the attending physician. We will initiate lactulose, as well as a leafy green diet with some substance. She is to follow with her family doctor, with potential contact with gastroenterology. She is to return with worsening. She was educated upon management, educated upon worrisome symptoms in which to return, had questions answered prior to discharge, and was discharged home in good condition. She was educated upon the incidental findings of her imaging, and is to follow- up with her family doctor by calling them tomorrow. In evaluation treatment this patient following differential diagnoses were entertained: Small bowel obstruction, large bowel obstruction, intussusception, mesenteric ischemia, diverticulitis, constipation, fecal impaction, among others. Medication Reconcilliation Current Medication List: was personally reviewed by me Blood Pressure Screening Patient's blood pressure: Elevated blood pressure Blood pressure disposition: Elevated BP felt to be situational Impression Primary Impression: Constipation Departure Information Dispostion Home / Self-Care Condition GOOD Prescriptions Lactulose (Chronulac) 10 Gm/15 Ml Syrp 15 ML PO DAILY for 3 Days, #45 ML Prov: Tavo Corrales PA-C 08/29/17 Referrals No Doctor, Assigned (PCP) Grigsby, Jeff D.,M.D. Patient Instructions My [facility] Additional Instructions You have been treated in the Emergency Department your constipation. Laboratory results and imaging studies have ruled out any emergent causes for your abdominal pain which would warrant admission or surgery. Lactulose 10g by mouth for the next 2 or 3 days. 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 I encourage increasing leafy greens and healthy diet. For pain control, you can use the following [id number] medicines (if >12 yo): - Regular strength (325mg/tab) Tylenol (acetaminophen) 2 tabs every 4-6 hours as needed. Do not exceed 12 tablets in a 24 hour period. Avoid taking more than 3 grams (3000 mg) of Tylenol per day. This includes any other sources of acetaminophen you may take on a regular basis. Drink plenty of water and stay well hydrated. As with any trip to the Emergency Department, you should follow-up with your Primary Care Provider from today's visit. Please follow-up regarding the CAT scan findings as we discussed as well as your symptoms here today. He may also call the distribution engineer if your symptoms persist. Return to the emergency department if your symptoms persist despite treatment plan outlined above or if the following symptoms occur: increased fevers, chills , worsening nausea/vomiting, blood in your stool or urine.
[2017-08-29] MEDS ORDERED: OPTIRAY 320 IV PRN (12:45)
[2017-08-29 13:00] LABS: BASO % 0.9 %; BASO ABS # 0.06 K/uL (0-0.2); COMPLETE YES; EOS % 2.2 %; HEMATOCRIT 39.7 % (37-47); IG% 0.1 %; LYMPH % 26.3 %; MEAN CELL VOLUME 92.1 fL (80-100); MEAN CORPUSCULAR HEMOGLOBIN 30.9 pg (25-34); MEAN CORPUSCULAR HGB CONC 33.5 g/dl (32-36); MEAN PLATELET VOLUME 10.7 fL (7.4-10.4); NEUT % 63.5 %; PLATELET COUNT 196 K/uL (130-400); RED BLOOD COUNT 4.31 M/uL (4.2-5.4); WHITE BLOOD COUNT 6.84 K/uL (4.8-10.8)
[2017-08-29 13:20] LABS: BUN/CREATININE RATIO 20.4 (10-20); CREATININE 0.79 mg/dl (0.60-1.20); MAGNESIUM 2.2 mg/dl (1.8-2.4); POTASSIUM 3.6 mmol/L (3.5-5.1)
[2017-08-29 13:24] LABS: MANUAL MICROSCOPIC REQUIRED? NO; REVIEW REQ? NO; URINE APPEARANCE CLEAR (CLEAR); URINE BILIRUBIN NEG (NEG); URINE COLOR YELLOW; URINE EPITHELIAL CELL AUTO 20-30 /lpf (0-5); URINE NITRITE NEG (NEG); URINE SPECIFIC GRAVITY 1.014 (1.000-1.030); UROBILINOGEN NEG (NEG); ZZUR CULT IF INDIC CLEAN CATCH NO
--- NOTE | 2017-08-29 13:44 | DIAGNOSTIC IMAGING REPORT ---
PA CHEST RADIOGRAPH AND UPRIGHT AND SUPINE AP RADIOGRAPHS OF THE ABDOMEN CLINICAL HISTORY: No bowel movement in 6 days, bloating, history of obstruction. COMPARISON STUDY: Chest radiograph June 27, 2017 CT of the abdomen and pelvis February 22, 2017. FINDINGS: Lung volumes are normal. No pneumothorax or pleural effusion is present. There is no evidence of pulmonary edema. Blunting of the left costophrenic angle is chronic. Cardiomediastinal silhouette is stable. No consolidation to suggest pneumonia. There is no free air. Cholecystectomy clips are present. Oral contrast is noted within portions of the small bowel. There is a moderate amount of stool within colon and rectum. IMPRESSION: 1. No free air or evidence of bowel obstruction. 2. No acute cardiopulmonary findings. 3. Moderate amount of stool within the colon and rectum. Electronically signed by: Donnie Gurrola M.D. 08/29/2017 1:43 PM Dictated Date/Time: 08/29/2017 1:41 PM
--- NOTE | 2017-08-29 16:34 | DIAGNOSTIC IMAGING REPORT ---
ABD/PELVIS IV AND ORAL CONT CLINICAL HISTORY: 86 years-old Female presenting with No bowel movement in 6 days, bloating, hx obstruction. TECHNIQUE: Multidetector CT of the abdomen and pelvis was performed after the administration of oral and intravenous contrast. IV contrast: 93 mL of Optiray 320. A dose lowering technique was used consistent with the principles of ALARA (as low as reasonably achievable). COMPARISON: 03/04/2017. CT DOSE (mGy.cm): The estimated cumulative dose is 323.78 mGy.cm. 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 Lung bases: Minimal dependent changes likely atelectasis. Solid 4 mm fissural nodule in the right middle lobe. Left atrial enlargement. Aortic valve and coronary artery calcification. No pericardial or pleural effusion. Liver: Normal morphology. No liver lesion. Patent hepatic vasculature. Biliary: Prominence of intrahepatic and extrahepatic bile ducts likely a reservoir effect in the post cholecystectomy state. Gallbladder surgically absent. Pancreas: Normal. Spleen: Normal. Adrenal glands: Normal. Kidneys and ureters: Normal. No hydronephrosis. Bladder: Normal. Pelvic organs: Uterus surgically absent. Bowel: Mild stool burden in the left colon and sigmoid. No bowel obstruction. Moderate sliding hiatal hernia. Peritoneal cavity: No free fluid or intraperitoneal gas. Lymph nodes: No enlarged lymph nodes in the abdomen or pelvis. Vasculature: Atherosclerosis of the normal caliber abdominal aorta. IVC patent. Abdominal wall: Fat containing midline ventral hernia. Musculoskeletal: Degenerative changes of the spine. IMPRESSION: 1. Mild stool burden in the left colon. No bowel obstruction. No acute intra-abdominal pathology. 2. Moderate hiatal hernia. 3. Solid 4 mm fissural right middle lobe nodule. Follow-up per Deangelo Society 2017 recommendations below. Please refer to below summary of Fleischner Society 2017 recommendations for follow-up of incidental CT nodules (H Denver, et al. Guidelines for management of incidental pulmonary nodules detected on CT images: From the Fleischner Society 2017. Radiology 2017; 284: 228-243.) SOLID NODULES Single nodule; size < 6 mm * Low risk patients: No routine follow-up * High risk patients: Optional CT at 12 months Single nodule; size 6-8 mm * Low risk patients: CT at 6-12 months, then consider CT at 18-24 months * High risk patients: CT at 6-12 months, then at 18-24 months Single nodule; size > 8 mm * Either low or high risk patients: Considered CT at 3 months, PET/CT, or tissue sampling Multiple nodules; size < 6 mm * Low risk patients: No routine follow up * High risk patients: Optional CT at 12 months Multiple nodules; size 6-8 mm * Low risk patients: CT at 3-6 months, then consider CT at 18-24 months * High risk patients: CT at 3-6 months, then at 18-24 months Multiple nodules; size > 8 mm * Low risk patients: CT at 3-6 months, then consider at 18-24 months * High risk patients: CT at 3-6 months, then at 18-24 months Note: These guidelines apply to incidental nodules. These guidelines do not apply to patients younger than 35 years, immunocompromised patients, or patients with cancer. * Low risk patients: Minimal or absent history of smoking and/or other known risk factors * High risk patients: History of smoking, exposure to other carcinogens, emphysema, fibrosis, upper lobe location, family history of lung cancer, etc. * If a nodule up to 8 mm is partly solid or is ground glass, further follow-up is required after 24 months to exclude possible slow growing adenocarcinoma. SUBSOLID NODULES Single ground-glass nodule * Nodule size < 6 mm: No routine follow-up * Nodule size > or = 6 mm: CT at 6-12 months to confirm persistence, then CT every 2 years until 5 years Single part-solid nodule * Nodule size < 6 mm: No routine follow-up * Nodules size > or = 6 mm: CT at 3-6 months to confirm persistence. If unchanged and solid component remains < 6 mm, annual CT should be performed for 5 years Multiple nodules * Nodule size < 6 mm: CT at 3-6 months. If stable, consider CT at 2 and 4 years. * Nodules size > or = 6 mm: CT at 3-6 months. Subsequent management based on the most suspicious nodule(s) Electronically signed by: Max Merino M.D. 08/29/2017 4:33 PM Dictated Date/Time: 08/29/2017 4:28 PM
[2017-08-29] MEDS ORDERED: DILT180C PO (16:37)
[2017-08-29] MEDS ORDERED: PRVC10 PO (16:48)
[2017-08-29] MEDS ORDERED: MULTCHW PO (16:48)
--- NOTE | 2017-08-29 16:51 | EMERGENCY ROOM VISIT NOTE ---
ED Visit Note First contact with patient: 12:15 The patient was seen and examined with Tavo Corrales PA-C. I agree with the history, physical and findings. Please see the note for disposition and details.
[2017-08-29 16:55] VITALS: BP 162/94; PULSE 74; O2SAT 97
[2017-08-29] MEDS ORDERED: LACT10SO17 PO (17:06)
[2017-08-29] MEDS ORDERED: CLC100X PO (19:38)
[2017-08-29] MEDS ORDERED: FLVHFA44 INH (19:38)
[2017-08-29] MEDS ORDERED: CALCTAB7 PO (19:38)
== END 2017-08-29 17:15 | disposition home or self-care (01) ==
LOC: C.EDB 11:51
DX: K59.00 Constipation, unspecified (principal); K21.9 Gastro-esophageal reflux disease without esophagitis; J45.909 Unspecified asthma, uncomplicated; I25.10 Atherosclerotic heart disease of native coronary artery without angina pectoris; I10 Essential (primary) hypertension; Z90.710 Acquired absence of both cervix and uterus; Z79.899 Other long term (current) drug therapy; Z79.01 Long term (current) use of anticoagulants

== ENCOUNTER → 2017-10-07 | Outpatient (CLI) | payer OTHER ==
[~2017-10-07] MED LIST changes: +CALCTAB7 PO; +CLC100X PO; +DILT180C PO; +FLVHFA44 INH; +LACT10SO17 PO; +MULTCHW PO; +PRVC10 PO
[2017-10-07 14:06] LABS: ALT/SGPT 22 U/L (12-78); AST/SGOT 17 U/L (15-37); BLOOD UREA NITROGEN 19 mg/dl (7-18); BUN/CREATININE RATIO 26.5 (10-20); CALCIUM 8.7 mg/dl (8.5-10.1); CARBON DIOXIDE 31 mmol/L (21-32); CHLORIDE 106 mmol/L (98-107); CREATININE 0.71 mg/dl (0.60-1.20); GLUCOSE 94 mg/dl (70-99); POTASSIUM 3.7 mmol/L (3.5-5.1); SODIUM 142 mmol/L (136-145)
[2017-10-07 14:09] LABS: ALB/GLOB RATIO 0.9 (0.9-2); ALKALINE PHOSPHATASE 90 U/L (45-117); CHOLESTEROL 163 mg/dl (0-200); CHOLESTEROL/HDL RATIO 2.5; HDL CHOLESTEROL 64 mg/dl; LDL CHOLESTEROL CALCULATED 48 mg/dl; TRIGLYCERIDES 253 mg/dl (0-150); VERY LOW DENSITY LIPOPROT CALC 51 mg/dl
== END | disposition home or self-care (01) ==
LOC: C.LABBC 10:58
PROVIDERS: ATTEND Physician Assistant
DX: I10 Essential (primary) hypertension (principal); E78.5 Hyperlipidemia, unspecified

== ENCOUNTER → 2018-01-23 | Outpatient (CLI) | payer OTHER ==
--- NOTE | 2018-01-23 15:42 | DIAGNOSTIC IMAGING REPORT ---
L ANKLE MIN 3 VIEWS ROUTINE HISTORY: 87 years-old Female M25.572 Left ankle painswelling of ankle - no known injury. tend acute left ankle pain and swelling COMPARISON: None available TECHNIQUE: 3 views of the left ankle FINDINGS: The bones appear mildly demineralized. 4 mm corticated bone fragment is seen adjacent to the distal fibula suggesting remote avulsion fracture or accessory ossicle. Moderate sized Achilles enthesophyte about the calcaneus. There is mild to moderate soft tissue swelling about the lower leg and ankle small joint effusion. No acute fracture or subluxation identified. Mild marginal spurring about the distal tibia. 6 mm subcortical round lucency of the lateral talar dome. IMPRESSION: 1. Mild to moderate soft tissue swelling and small joint effusion without acute fracture or subluxation. 2. Probable osteochondral defect or subchondral cyst of the lateral talar dome. The above report was generated using voice recognition software. It may contain grammatical, syntax or spelling errors. Electronically signed by: Florentin Arnold M.D. 01/23/2018 3:41 PM Dictated Date/Time: 01/23/2018 3:38 PM
== END | disposition home or self-care (01) ==
LOC: C.RADBC 15:14
PROVIDERS: ATTEND Family Medicine Adult Medicine
DX: M25.572 Pain in left ankle and joints of left foot (principal)

== ENCOUNTER → 2018-04-13 | Outpatient (CLI) | payer OTHER ==
--- NOTE | 2018-04-13 14:28 | DIAGNOSTIC IMAGING REPORT ---
R ELBOW MIN 3 VIEWS ROUTINE CLINICAL HISTORY: 87 years-old Female presenting with PAIN IN BOTH UPPER EXTREMITIES. TECHNIQUE: Frontal, oblique, lateral views of the right elbow were obtained. COMPARISON: Comparison made to plain radiographs of the left elbow. FINDINGS: Elbow joint congruent. No acute fracture or malalignment. No advanced degenerative change. No radiographic soft tissue abnormality. IMPRESSION: No acute osseous injury. Electronically signed by: Max Merino M.D. 04/13/2018 2:27 PM Dictated Date/Time: 04/13/2018 2:26 PM
--- NOTE | 2018-04-13 14:29 | DIAGNOSTIC IMAGING REPORT ---
L ELBOW MIN 3 VIEWS ROUTINE CLINICAL HISTORY: 87 years-old Female presenting with PAIN IN BOTH UPPER EXTREMITIES. TECHNIQUE: Frontal, oblique, and lateral views of the left elbow were obtained. COMPARISON: Comparison made to plain radiographs of the right elbow performed the same day. FINDINGS: Elbow joint congruent. No acute fracture or malalignment. No advanced degenerative change. No elbow joint effusion. IMPRESSION: No acute osseous injury. Electronically signed by: Max Merino M.D. 04/13/2018 2:28 PM Dictated Date/Time: 04/13/2018 2:27 PM
== END | disposition home or self-care (01) ==
LOC: C.RADBC 14:04
PROVIDERS: ATTEND Nurse Practitioner Adult Health
DX: M79.601 Pain in right arm (principal); M79.602 Pain in left arm